=== PATIENT | male | born 2000 | race Caucasian/White ===

== ENCOUNTER 2023-10-27 21:18 | Emergency (ER) | payer BC ==
[2023-10-27 21:25] VITALS: BP 120/70; PULSE 100; RESP 18; TEMP 99.6; BMI 25.8
[2023-10-27] MEDS: IBUPROFEN 600 MG TABLET (FP) PO ONE (22:10)
== END 2023-10-27 22:25 | disposition home or self-care (01) ==
LOC: FER 21:18
DX: M25.522 Pain in left elbow (principal); S59.902A Unspecified injury of left elbow, initial encounter; W19.XXXA Unspecified fall, initial encounter; Y93.67 Activity, basketball
CPT/HCPCS: 73070-TC-LT-FY; 73090-TC-LT-FY; 99283-25